=== PATIENT | male | born 1935 | race Caucasian/White ===

== ENCOUNTER 2019-09-11 17:47 | Outpatient (CLI) | payer MEDICARE, OTHER ==
--- NOTE | 2019-09-11 19:39 | Ultrasound Report ---
PROCEDURE: Duplex Ext Veins Left INDICATIONS: DVT TECHNIQUE: Real-time imaging, as well as color and pulse Doppler interrogation, were performed of the lower extr emity deep veins from the inguinal ligament to the popliteal fossa. COMPARISON: None. FINDINGS: The deep veins are normally compressible, and free of intraluminal thrombus. Color and pu lse Doppler demonstrate normal phasic intraluminal flow. There is normal augmentation response to di stal compression maneuver. IMPRESSION: No evidence of deep venous thrombosis. Reviewed by: Hussein Wheatley MD on 09/11/2019 7:38 PM PDT Approved by: Hussein Wheatley MD on 09/11/2019 7:38 PM PDT Station ID: [id number]
== END 2019-09-11 17:48 | disposition home or self-care (01) ==
LOC: DI 17:47
PROVIDERS: ATTEND Internal Medicine
DX: I82.402 Acute embolism and thrombosis of unspecified deep veins of left lower extremity (principal)

== ENCOUNTER 2020-09-07 11:35 | Outpatient (CLI) | payer MEDICARE, OTHER ==
[2020-09-07 12:29] LABS: CALCIUM 8.7 mg/dL (8.5-10.3); CREATININE 2.1 mg/dL (0.6-1.2); POTASSIUM 3.9 mmol/L (3.5-5.0)
== END 2020-09-07 11:36 | disposition home or self-care (01) ==
LOC: LAB 11:35
PROVIDERS: ATTEND Pediatrics Pediatric Gastroenterology
DX: I13.0 Hypertensive heart and chronic kidney disease with heart failure and stage 1 through stage 4 chronic kidney disease, or unspecified chronic kidney disease (principal); I50.33 Acute on chronic diastolic (congestive) heart failure; N18.9 Chronic kidney disease, unspecified
CPT/HCPCS: 36415; 80048

== ENCOUNTER 2020-09-14 11:25 | Outpatient (CLI) | payer MEDICARE, OTHER ==
[2020-09-14 11:47] LABS: CALCIUM 8.9 mg/dL (8.5-10.3); CREATININE 2.5 mg/dL (0.6-1.2)
== END 2020-09-14 11:26 | disposition home or self-care (01) ==
LOC: LAB 11:25
DX: I50.33 Acute on chronic diastolic (congestive) heart failure (principal)
CPT/HCPCS: 36415; 80048

== ENCOUNTER 2020-09-20 11:20 | Outpatient (CLI) | payer MEDICARE, OTHER ==
[2020-09-20 11:53] LABS: CALCIUM 9.5 mg/dL (8.5-10.3); CREATININE 2.4 mg/dL (0.6-1.2); POTASSIUM 4.2 mmol/L (3.5-5.0)
== END 2020-09-20 11:21 | disposition home or self-care (01) ==
LOC: LAB 11:20
DX: I50.33 Acute on chronic diastolic (congestive) heart failure (principal)
CPT/HCPCS: 36415; 80048

== ENCOUNTER 2020-10-06 11:48 | Outpatient (CLI) | payer MEDICARE, OTHER ==
[2020-10-06 12:44] LABS: ALBUMIN 3.4 g/dL (3.2-5.5); CALCIUM 9.1 mg/dL (8.5-10.3); CREATININE 2.2 mg/dL (0.6-1.2); PHOSPHORUS 4.4 mg/dL (2.5-4.6); POTASSIUM 4.4 mmol/L (3.5-5.0)
== END 2020-10-06 11:49 | disposition home or self-care (01) ==
LOC: LAB 11:48
PROVIDERS: ATTEND Nurse Practitioner Family
DX: I50.32 Chronic diastolic (congestive) heart failure (principal)
CPT/HCPCS: 36415; 80048; 80069

== ENCOUNTER 2020-10-11 13:46 | Outpatient (CLI) | payer MEDICARE, OTHER | END 2020-10-11 13:47 | disposition critical access hospital (66) | LOC: EMS 13:46 | DX: R42 Dizziness and giddiness (principal); S09.90XA Unspecified injury of head, initial encounter; W18.39XA Other fall on same level, initial encounter; Y93.01 Activity, walking, marching and hiking; Y92.10 Unspecified residential institution as the place of occurrence of the external cause | CPT/HCPCS: A0425; A0429 ==

== ENCOUNTER 2020-10-11 14:29 | Emergency (ER) | payer MEDICARE, OTHER ==
[2020-10-11 14:39] VITALS: BP 104/81
--- NOTE | 2020-10-11 14:45 | ED Physician Documentation ---
PD HPI HEAD INJURY - Stated complaint Stated Complaint: FALL - History obtained from History obtained from: Patient, EMS - Additional information Additional information: 85-year-old gentleman was on Eliquis until 5 days ago and stopped it. Today he got slightly dizzy and fell hitting his head and his left knee. He does have some wounds and states he is up-to-date on tetanus. No other injuries. No loss of consciousness. Review of Systems Ten Systems: 10 systems reviewed and negative Constitutional: reports: Reviewed and negative Eyes: reports: Reviewed and negative Ears: reports: Reviewed and negative Nose: reports: Reviewed and negative Throat: reports: Reviewed and negative Cardiac: reports: Reviewed and negative PD PAST MEDICAL HISTORY - Present Medications Home Medications: Ambulatory Orders Medication Instructions Recorded Confirmed Fluticasone/Salmeterol [Advair 1 puffs PO DAILY 10/11/20 10/11/20 250-50 Diskus] Metoprolol Succinate [Toprol Xl] 1 tab PO DAILY 10/11/20 10/11/20 Potassium Chloride 60 meq PO DAILY 10/11/20 10/11/20 Sennosides/Docusate Sodium [Stool 1 tab PO PRN PRN 10/11/20 10/11/20 Softener-Laxative Tablet] Torsemide 40 mg PO BID 10/11/20 10/11/20 allopurinoL [Zyloprim] 300 mg PO DAILY 10/11/20 10/11/20 metOLazone [Metolazone] 1 tab PO PRN PRN 10/11/20 10/11/20 - Allergies Allergies/Adverse Reactions: Allergies Allergy/AdvReac Type Severity Reaction Status Date / Time No Known Drug Allergies Allergy Verified 10/11/20 14:39 PD ED PE NORMAL - Vitals Vital signs reviewed: Yes - General General: Alert and oriented X 3, No acute distress - HEENT HEENT: PERRL, EOMI, Other (He has shallow scrapes in the left eyebrow, over the bridge of the nose. No facial bony tenderness.) - Neck Neck: No bony TTP - Extremities Extremities: Other (Shallow skin tears over the left knee x2 without underlying tenderness or limited range of motion.) - Neuro Neuro: Alert and oriented X 3, Normal speech Eye Opening: Spontaneous Motor: Obeys Commands Verbal: Oriented GCS Score: 15 - Psych Psych: Normal mood, Normal affect Results - Vitals Vitals: Vital Signs - 24 hr 10/11/20 14:35 Temperature 36.3 C L Heart Rate 104 H Respiratory 16 Rate Blood Pressure 104/81 H O2 Saturation 96 Oxygen O2 Source Room air Procedures - Laceration (location) eyebrow.nose Length in cm: 2 Wound type: Linear, Superficial Wound preparation: Irrigated copiously NS Skin layer closure: Dermabond Other: Tetanus UTD L knee Length in cm: 4 Wound type: Linear, Flap, Superficial Wound preparation: Irrigated copiously NS Skin layer closure: Dermabond PD MEDICAL DECISION MAKING - ED course ED course: 85-year-old gentleman with significant baseline heart failure fell today. Relevant CTs of the head and neck were without acute disease but noting that there was a pleural effusion seen which is a known problem for him in the family. Has appointment with cardiology tomorrow. Departure - Departure Disposition: 01 Home, Self Care Clinical Impression: Injury of head and neck, Laceration Condition: Good Record reviewed to determine appropriate education?: Yes Instructions: ED Head Injury Closed Comments: Call your doctor to arrange a follow-up appointment, make the next available appointment. In the interim, return anytime if worse or if new symptoms develop.
--- NOTE | 2020-10-11 15:05 | CT Report ---
PROCEDURE: HEAD WO INDICATIONS: head inj TECHNIQUE: Noncontrast 4.5 mm thick angled axial sections acquired from the foramen magnum to the vertex. For r adiation dose reduction, the following was used: automated exposure control, adjustment of mA and/or kV according to patient size. COMPARISON: None FINDINGS: Image quality: Excellent. CSF spaces: Basal cisterns are patent. No extra-axial fluid collections. The ventricles are symmet mauro in size and shape. Brain: No intracranial bleeds or masses. There is cerebral volume loss for age, with resultant vent ricular and sulcal prominence. There are periventricular and deep white matter chronic small vessel ischemic changes. Chronic right cerebellar hemisphere infarct. There is intracranial internal caroti d artery and vertebral artery atherosclerosis. Skull and face: Calvarium and visualized facial bones appear intact, without suspicious lesions. Sinuses: Visualized sinuses and mastoids are clear. IMPRESSION: No acute intracranial disease process. Reviewed by: Jesusita Thomas MD, PhD on 10/11/2020 3:04 PM PDT Approved by: Jesusita Thomas MD, PhD on 10/11/2020 3:04 PM PDT Station ID: [id number]
--- NOTE | 2020-10-11 15:09 | CT Report ---
PROCEDURE: CERVICAL SPINE WO INDICATIONS: head inj TECHNIQUE: Noncontrast 3 mm thick sections acquired from the skull base to the T4 level. Sagittal and coronal r eformats were then constructed. For radiation dose reduction, the following was used: automated exp osure control, adjustment of mA and/or kV according to patient size. COMPARISON: None. FINDINGS: Straightening of usual cervical lordosis. No listhesis. Intervertebral disc spaces are congruent. The re is fusion of the facets at the C2-C3, C3-C4, C4-C5, and C5-C6 levels. There is also varying degree s of ankylosis across the disc spaces at these levels. This may be postsurgical versus degenerative; no ghost tracks or hardware construct is demonstrated. Vertebral body heights are maintained with no evidence of fracture. Extensive degenerative changes are present. Visualized portions of the ribs are intact. There is a moderate to large right pleural effusion. IMPRESSION: No CT evidence of acute traumatic cervical spine injury. Moderate to large right pleural effusion. No imaging of the chest has been performed at this institut ion. Consider a CT chest with IV contrast as well as review of clinical history which could potential ly explain the pleural effusion. Reviewed by: Keven Plasencia MD on 10/11/2020 3:08 PM PDT Approved by: Keven Plasencia MD on 10/11/2020 3:08 PM PDT Station ID: [id number]
== END 2020-10-11 15:38 | disposition home or self-care (01) ==
LOC: EDBD → EDUNIT# → ED 14:29
DX: S09.90XA Unspecified injury of head, initial encounter (principal); S19.9XXA Unspecified injury of neck, initial encounter; S81.012A Laceration without foreign body, left knee, initial encounter; S01.21XA Laceration without foreign body of nose, initial encounter; S01.112A Laceration without foreign body of left eyelid and periocular area, initial encounter; W18.30XA Fall on same level, unspecified, initial encounter; R42 Dizziness and giddiness; J90 Pleural effusion, not elsewhere classified; I50.9 Heart failure, unspecified
CPT/HCPCS: 12002; 12011; 99282; 99284

== ENCOUNTER 2020-10-26 16:25 | Outpatient (CLI) | payer MEDICARE, OTHER ==
[2020-10-26 17:07] LABS: CALCIUM 8.6 mg/dL (8.5-10.3); CREATININE 3.3 mg/dL (0.6-1.2); POTASSIUM 4.9 mmol/L (3.5-5.0)
== END 2020-10-26 16:26 | disposition home or self-care (01) ==
LOC: LAB 16:25
PROVIDERS: ATTEND Nurse Practitioner
DX: I13.0 Hypertensive heart and chronic kidney disease with heart failure and stage 1 through stage 4 chronic kidney disease, or unspecified chronic kidney disease (principal); I48.21 Permanent atrial fibrillation
CPT/HCPCS: 36415; 80048; 83880